=== PATIENT | female | born 1950 | race Caucasian/White ===

== ENCOUNTER 2018-04-13 15:26 | Inpatient (IN) | payer MEDICARE ==
[~2018-04-13] VITALS: Ht 154.9 cm; Wt 53.5 kg
[2018-04-13] MEDS ORDERED: PIPER-TAZ 3.375 GM 50 ML IV SCH (16:00)
[2018-04-13 16:16] LABS: BASOPHILS # (AUTO) 0.1 (0.0-0.1); BASOPHILS % 0.3 % (0.0-1.0); EOSINOPHILS # (AUTO) 0.1 (0.0-0.4); EOSINOPHILS % 0.4 % (0.0-6.0); HEMATOCRIT 32.7 % (34.2-44.1); HEMOGLOBIN 10.9 g/dL (12.0-16.0); LYMPHOCYTES # (AUTO) 4.3 (1.0-3.2); LYMPHOCYTES % 18.5 % (18.0-39.1); MEAN CORPUSCULAR HEMOGLOBIN 29.3 pg (28-32); MEAN CORPUSCULAR HGB CONC 33.3 g/dL (31-35); MEAN CORPUSCULAR VOLUME 87.9 fL (81-99); MONOCYTES # (AUTO) 1.1 (0.2-0.8); MONOCYTES % 4.9 % (4.4-11.3); NEUTROPHILS # (AUTO) 17.5 (2.1-6.9); NEUTROPHILS % 75.3 % (38.7-80.0); PLATELET COUNT 552 x10e3/uL (140-360); RED BLOOD COUNT 3.72 x10e6/uL (3.6-5.1); RED CELL DISTRIBUTION WIDTH 12.8 % (11.7-14.4)
[2018-04-13 16:22] LABS: INR 1.08
[2018-04-13 16:23] LABS: PARTIAL THROMBOPLASTIN TIME 26.4 seconds (23.8-35.5)
[2018-04-13 16:29] LABS: ALBUMIN 2.5 g/dL (3.5-5.0); ALBUMIN/GLOBULIN RATIO 0.5 (0.8-2.0); ANION GAP 20.9 mmol/L (8-16); CALCIUM 9.1 mg/dL (8.4-10.2); CREATININE, SERUM 1.73 mg/dL (0.57-1.11)
[2018-04-13 16:35] LABS: CREATINE KINASE MB 18.7 ng/mL (0-5.0)
[2018-04-13 16:37] LABS: POTASSIUM 2.9 mmol/L (3.5-5.1)
[2018-04-13] MEDS ORDERED: POTASSIUM CHLORIDE 20MEQ/100ML 100 ML IV ONE (16:45)
[2018-04-13] MEDS ORDERED: ZIPRASIDONE 20 MG VIAL IM NR (17:00)
[2018-04-13] MEDS ORDERED: POTASSIUM CHLORIDE 20 MEQ TAB CR PO NR (17:00)
[2018-04-13] MEDS ORDERED: NICOTINE 7 MG PATCH ONE (17:09)
[2018-04-13] MEDS ORDERED: NICOTINE 21 MG/EA PATCH ONE (17:09)
[2018-04-13] MEDS: NICOTINE 21 MG/EA PATCH TOP SCH (17:13)
[2018-04-13] MEDS ORDERED: ZIPRASIDONE 20 MG VIAL IM PRN ×2 (17:15→21:00)
[2018-04-13 17:18] LABS: AMPHETAMINES SCREEN,URINE NEGATIVE (NEGATIVE); BENZODIAZEPINES SCREEN,URINE NEGATIVE (NEGATIVE); PHENCYCLIDINE SCREEN,URINE NEGATIVE (NEGATIVE)
--- NOTE | 2018-04-13 17:28 | Diagnostic Imaging Report ---
RIGHT TIBIA AND FIBULA X-RAY - 4 VIEWS HISTORY: ^looking for gas line from [place] ^[id number] ^1600 COMPARISON: None available. FINDINGS: Bones: No acute displaced fracture. Osseous alignment is within normal limits. Joints: The joint spaces are well-maintained. Soft tissues: Extensive soft tissue that within the anterior and posterior aspect of the right lower extremity. Diffuse soft tissue swelling. IMPRESSION: Soft tissue swelling and multiple air foci throughout the right lower extremity without cortical erosion. Signed by: Dr. Melvi Marx M.D. on 04/13/2018 5:25 PM
--- NOTE | 2018-04-13 17:29 | Diagnostic Imaging Report ---
LEFT TIBIA AND FIBULA X-RAY - 4 VIEWS HISTORY: ^looking for gas line from [place] ^[id number] ^1600 COMPARISON: None available. FINDINGS: Bones: No acute displaced fracture. Status post fixation of the distal fibula with plates and screws. The hardware appears intact. Osseous alignment is within normal limits. Joints: The joint spaces are well-maintained. Soft tissues: The soft tissues appear unremarkable. IMPRESSION: No visualize soft tissue swelling or air foci. Signed by: Dr. Melvi Marx M.D. on 04/13/2018 5:26 PM
[2018-04-13] MEDS ORDERED: HALOPERIDOL LACTATE 5 MG/ML VIAL ONE (17:46)
[2018-04-13] MEDS ORDERED: HALOPERIDOL LACTATE 5 MG/ML VIAL IM ONE (18:00)
[2018-04-13] MEDS ORDERED: HALOPERIDOL LACTATE 5 MG/ML VIAL IM NR (18:00)
--- NOTE | 2018-04-13 18:55 | Diagnostic Imaging Report ---
EXAM: CT Abdomen and Pelvis WITHOUT contrast INDICATION: ^prolaped uterus, cellulitis, concern of abscess COMPARISON: None. TECHNIQUE: Abdomen and pelvis were scanned utilizing a multidetector helical scanner from the lung base to the pubic symphysis without administration of IV contrast. Absence of intravenous contrast decreases sensitivity for detection of focal lesions and vascular pathology. Coronal and sagittal reformations were obtained. Routine protocol was performed. IV CONTRAST: None. ORAL CONTRAST: Water RADIATION DOSE: Total DLP: 182.3 mGy*cm Estimated effective dose: (DLP x 0.015 x size factor) mSv COMPLICATIONS: None FINDINGS: LINES and TUBES: Stover catheter within the urinary bladder. LOWER THORAX: Unremarkable HEPATOBILIARY: No focal hepatic lesions. No biliary ductal dilation. GALLBLADDER: No radio-opaque stones or sludge. No wall thickening. SPLEEN: No splenomegaly. PANCREAS: No focal masses or ductal dilatation. ADRENALS: No adrenal nodules KIDNEYS/URETERS: Mild hydronephrosis without calcified stones. No cystic or solid mass lesions. No stones. GI TRACT: No abnormal distention, wall thickening, or evidence of bowel obstruction. Appendix is not visualized. PELVIC ORGANS/BLADDER: Prolapse of the uterus within the vagina. No surrounding fluid collections or abscess. LYMPH NODES: No lymphadenopathy. VESSELS: Marked tortuosity of the abdominal aorta without aneurysm. PERITONEUM / RETROPERITONEUM: No free air or fluid. BONES: Multilevel degenerative changes throughout the lumbar spine, worse at L1-L2 1 L5-S1. Scoliosis. SOFT TISSUES: Partially visualized bilateral breast implants. IMPRESSION: 1. Uterine prolapse. 2. No fluid collections or abscess within the pelvis or perineum region. Signed by: Dr. Melvi Marx M.D. on 04/13/2018 6:52 PM
--- NOTE | 2018-04-13 18:56 | Diagnostic Imaging Report ---
EXAMINATION: CHEST SINGLE (PORTABLE) INDICATION: ^pre op COMPARISON: CT abdomen and pelvis 04/13/2018 FINDINGS: AP view TUBES and LINES: None. LUNGS: Lungs are well inflated. Lungs are clear. There is no evidence of pneumonia or pulmonary edema. PLEURA: No pleural effusion or pneumothorax. HEART AND MEDIASTINUM: The cardiomediastinal silhouette is unremarkable.. BONES AND SOFT TISSUES: No acute osseous lesion. Bilateral breast implants. UPPER ABDOMEN: No free air under the diaphragm. IMPRESSION: No acute thoracic abnormality. Signed by: Dr. Melvi Marx M.D. on 04/13/2018 6:52 PM
[2018-04-13] MEDS: VANCOMYCIN 1GM/NS 250 ML 250 ML IV SCH (19:30)
[2018-04-13] MEDS ORDERED: SODIUM CHLORIDE 0.9% 1000ML 1,000 ML IV ONE (20:00)
[2018-04-13] MEDS ORDERED: KCL 20MEQ/.9 SOD CHL 1,000 ML IV ONE (20:00)
[2018-04-13] MEDS ORDERED: DEXTROSE 50% SYRINGE 50 ML IV PRN (20:15)
[2018-04-13] MEDS ORDERED: ONDANSETRON HCL INJ 2 MG/ML VIAL IV PRN (20:15)
[2018-04-13] MEDS ORDERED: MORPHINE SULFATE 2 MG/ML SYR IV PRN (20:15)
--- OUTSIDE RECORDS SUMMARY | 2018-04-13 20:19 | XMS REPORT ---
Author Author [facility] Address Unknown Phone Unavailable Care Team Providers Care Foot Roentgenologist Name Role Phone Karla QUACH Unavailable Unavailable Problems This patient has no known problems. Allergies, Adverse Reactions, Alerts This patient has no known allergies or adverse reactions. Medications This patient has no known medications. Results Test Description Test Time Test Comments Text Results Atomic Results Result Comments CHEST SINGLE (PORTABLE) 2018-04-13 18:52:00 [place] [address] Patient Name: SUSY ARMSTRONG MR #: [id number] : 1950 Age/Sex: 67/F Req #: [id number] Adm Physician: Ordered by: ABISAI QUACH MD Report #: [id number] Location: ER Room/Bed: Procedure: [id number] DX/CHEST SINGLE (PORTABLE) Exam Date: Exam Time: REPORT STATUS: Signed EXAMINATION: CHEST SINGLE (PORTABLE) INDICATION: pre op COMPARISON: CT abdomen and pelvis 04/13/2018 FINDINGS: AP view TUBES and LINES: None. LUNGS: Lungs are well inflated. Lungs are clear. There is no evidence of pneumonia or pulmonary edema. PLEURA: No pleural effusion or pneumothorax. HEART AND MEDIASTINUM: The cardiomediastinal silhouette is unremarkable.. BONES AND SOFT TISSUES: No acute osseous lesion. Bilateral breast implants. UPPER ABDOMEN: No free air under the diaphragm. IMPRESSION: No acute thoracic abnormality. Signed by: Dr. Polly Saldana M.D. on 04/13/2018 6:52 PM Dictated By: POLLY SALDANA MD 51 Transcribed By: ADRIAN on 04/13/181851 COPY TO: ABISAI QUACH MD CT ABDOMEN/PELVIS WO 2018-04-13 18:48:00 [place] [address] Patient Name: SUSY ARMSTRONG MR #: [id number] : 1950 Age/Sex: 67/F Req #: [id number] Adm Physician: Ordered by: ELIDA MARIE NP Report #: [id number] Location: ER Room/Bed: Procedure: [id number] CT/CT ABDOMEN/PELVIS WO Exam Date: Exam Time: REPORT STATUS: Signed EXAM: CT Abdomen and Pelvis WITHOUT contrast INDICATION: prolaped uterus, cellulitis, concern of abscess COMPARISON: None. TECHNIQUE: Abdomen and pelvis were scanned utilizing a multidetector helical scanner from the lung base to the pubic symphysis without administration of IV contrast. Absence of intravenous contrast decreases sensitivity for detection of focal lesions and vascular pathology. Coronal and sagittal reformations were obtained. Routine protocol was performed. IV CONTRAST: None. ORAL CONTRAST: Water RADIATION DOSE: Total DLP: 182.3 mGy*cm Estimated effective dose: (DLP x 0.015 x size factor) mSv COMPLICATIONS: None FINDINGS: LINES and TUBES: Stover catheter within the urinary bladder. LOWER THORAX: Unremarkable HEPATOBILIARY: No focal hepatic lesions. No biliary ductal dilation. GALLBLADDER: No radio-opaque stones or sludge. No wall thickening. SPLEEN: No splenomegaly. PANCREAS: No focal masses or ductal dilatation. ADRENALS: No adrenal nodules KIDNEYS/URETERS: Mild hydronephrosis without calcified stones. No cystic or solid mass lesions. No stones. GI TRACT: No abnormal distention, wall thickening, or evidence of bowel obstruction. Appendix is not visualized. PELVIC ORGANS/BLADDER: Prolapse of the uterus within the vagina. No surrounding fluid collections or abscess. LYMPH NODES: No lymphadenopathy. VESSELS: Marked tortuosity of the abdominal aorta without aneurysm. PERITONEUM / RETROPERITONEUM: No free air or fluid. BONES: Multilevel degenerative changes throughout the lumbar spine, worse at L1-L2 1 L5-S1. Scoliosis. SOFT TISSUES: Partially visualized bilateral breast implants. IMPRESSION: 1. Uterine prolapse. 2. No fluid collections or abscess within the pelvis or perineum region. Signed by: Dr. Polly Saldana M.D. on 04/13/2018 6:52 PM Dictated By: POLLY SALDANA MD 51 Transcribed By: ADRIAN on 04/13/181851 COPY TO: ELIDA MARIE NP LOWER LEG LEFT 2018-04-13 17:25:00 [place] [address] Patient Name: SUSY ARMSTRONG MR #: [id number] : 1950 Age/Sex: 67/F Req #: [id number] Adm Physician: Ordered by: ABISAI QUACH MD Report #: [id number] Location: ER Room/Bed: Procedure: [id number] DX/LOWER LEG LEFT Exam Date: 04/13/18 Exam Time: 1600 REPORT STATUS: Signed LEFT TIBIA AND FIBULA X-RAY - 4 VIEWS HISTORY: looking for gas line from [facility] [id number] COMPARISON: None available. FINDINGS: Bones: No acute displaced fracture. Status post fixation of the distal fibula with plates and screws. The hardware appears intact. Osseous alignment is within normal limits. Joints: The joint spaces are well-maintained. Soft tissues: The soft tissues appear unremarkable. IMPRESSION: No visualize soft tissue swelling or air foci. Signed by: Dr. Polly Saldana M.D. on 04/13/2018 5:26 PM Dictated By: POLLY SALDANA MD 25 Transcribed By: ADRIAN on 04/13/181725 COPY TO: ABISAI QUACH MD LOWER LEG RIGHT 2018-04-13 17:24:00 [place] [address] Patient Name: SUSY ARMSTRONG MR #: [id number] : 1950 Age/Sex: 67/F Req #: [id number] Adm Physician: Ordered by: ABISAI QUACH MD Report #: [id number] Location: ER Room/Bed: Procedure: [id number] DX/LOWER LEG RIGHT Exam Date: 04/13/18 Exam Time: 1600 REPORT STATUS: Signed RIGHT TIBIA AND FIBULA X-RAY - 4 VIEWS HISTORY: looking for gas line from [facility] [id number] COMPARISON: None available. FINDINGS: Bones: No acute displaced fracture. Osseous alignment is within normal limits. Joints: The joint spaces are well-maintained. Soft tissues: Extensive soft tissue that within the anterior and posterior aspect of the right lower extremity. Diffuse soft tissue swelling. IMPRESSION: Soft tissue swelling and multiple air foci throughout the right lower extremity without cortical erosion. Signed by: Dr. Polly Saldana M.D. on 04/13/2018 5:25 PM Dictated By: POLLY SALDANA MD 24 Transcribed By: ADRIAN on 04/13/181724 COPY TO: ABISAI QUACH MD
[2018-04-13 21:00] VITALS: BP 129/72
[2018-04-13] MEDS: INSULIN REGULAR, HUMAN 100 UNIT/1 ML 3ML VIAL SQ SCH (21:00)
[2018-04-13 22:00] VITALS: BP 129/72
[2018-04-13] MEDS: SODIUM CHLORIDE 0.9% 1000ML 1,000 ML IV SCH (22:44)
[2018-04-13 23:01] VITALS: BP 129/72
[2018-04-14] VITALS (8 sets, daily range): BP systolic 75–120; BP diastolic 46–64
[2018-04-14] MEDS: SODIUM CHLORIDE 0.9% 1000ML 1,000 ML IV SCH ×4 (03:17→17:06)
[2018-04-14] MEDS: PIPERACILLIN/TAZO 2.25 GM 50 ML IV SCH ×4 (03:17→17:00)
[2018-04-14] MEDS ORDERED: SODIUM CHLORIDE 0.9% 50ML 50 ML ONE ×2 (03:18→06:08)
[2018-04-14] MEDS: ACETAMINOPHEN 1000 MG/100 ML IV SCH ×3 (05:40→17:00)
[2018-04-14 06:57] LABS: BASOPHILS % 0.2 % (0.0-1.0); EOSINOPHILS % 0.1 % (0.0-6.0); HEMATOCRIT 23.8 % (34.2-44.1); LYMPHOCYTES # (AUTO) 2.4 (1.0-3.2); LYMPHOCYTES % 13.1 % (18.0-39.1); MEAN CORPUSCULAR HEMOGLOBIN 29.9 pg (28-32); MEAN CORPUSCULAR HGB CONC 33.6 g/dL (31-35); MEAN CORPUSCULAR VOLUME 88.8 fL (81-99); MONOCYTES # (AUTO) 1.1 (0.2-0.8); MONOCYTES % 5.9 % (4.4-11.3); NEUTROPHILS # (AUTO) 14.6 (2.1-6.9); NEUTROPHILS % 79.9 % (38.7-80.0); PLATELET COUNT 412 x10e3/uL (140-360); RED BLOOD COUNT 2.68 x10e6/uL (3.6-5.1); RED CELL DISTRIBUTION WIDTH 13.2 % (11.7-14.4)
[2018-04-14 07:24] LABS: CREATINE KINASE MB 4.2 ng/mL (0-5.0)
[2018-04-14] MEDS: INSULIN REGULAR, HUMAN 100 UNIT/1 ML 3ML VIAL SQ SCH ×4 (07:30→21:00)
[2018-04-14 07:38] LABS: CALCIUM 7.6 mg/dL (8.4-10.2); CREATININE, SERUM 1.07 mg/dL (0.57-1.11); MAGNESIUM 1.6 MG/DL (1.3-2.1); PHOSPHORUS 3.1 MG/DL (2.3-4.7)
[2018-04-14 08:19] LABS: CLARITY,URINE CLOUDY (CLEAR); COLOR,URINE AMBER (YELLOW); LEUKOCYTE ESTERASE ,URINE 2+ (NEGATIVE); NITRITE,URINE NEGATIVE (NEGATIVE)
[2018-04-14 08:20] LABS: BILIRUBIN,URINE NEGATIVE (NEGATIVE); KETONES,URINE NEGATIVE (NEGATIVE); PROTEIN,URINE DIPSTICK 2+ (NEGATIVE); URINE UROBILINOGEN 0.2 mg/dL (0.2 - 1)
[2018-04-14] MEDS ORDERED: POTASSIUM CHLORIDE 20 MEQ TAB CR PO STA (10:12)
[2018-04-14] MEDS ORDERED: SODIUM CHLORIDE 0.9% 250ML 250 ML IV ONE (10:45)
[2018-04-14] MEDS ORDERED: SODIUM CHLORIDE 0.9% 1000ML 1,000 ML IV ONE (14:30)
[2018-04-14] MEDS ORDERED: ZIPRASIDONE 20 MG VIAL IM PRN (14:45)
[2018-04-14] MEDS: MIDODRINE HCL 5 MG TABLET PO SCH (15:24)
[2018-04-14 15:51] LABS: HIV 1&2 AB SCREEN NON-REACTIVE (NONREACTIVE)
--- NOTE | 2018-04-14 15:56 | Consultation ---
DATE OF CONSULTATION: April 14, 2018 INFECTIOUS DISEASE CONSULTATION REASON FOR CONSULTATION: Leg cellulitis. HISTORY OF PRESENT ILLNESS: This patient, who is homeless, comes into the hospital with altered mental status. The patient does not really provide any meaningful information. History was taken mainly from the chart. Comes in with altered mental status. The patient was also found to have a wound on her leg. The patient apparently had chronic wound. There are maggots coming from her leg. The patient is currently lying in bed comfortably, sleeping. MEDICATIONS: She is on Zosyn, insulin, vancomycin. PHYSICAL EXAMINATION GENERAL: She is alert but confused. Does not seem to be in acute distress. VITALS: Stable currently. HEENT: She is not icteric. NECK: Supple. CHEST: Clear. COR: S1 and S2, no murmur. ABDOMEN: Soft. She had CT of the abdomen and pelvis that showed no acute finding. Chest x-ray showed no acute finding. IMPRESSION: Chronic wound on the leg with infection. IV vancomycin. IV Zosyn. Will check CBC. Will check chem panel. Surgical debridement. Obtain HIV. Obtain hepatitis. Will follow. Job#: [id number]
[2018-04-14] MEDS ORDERED: MIDODRINE 2.5 MG TAB PO SCH (16:00)
--- NOTE | 2018-04-14 16:02 | History and Physical ---
CHIEF COMPLAINT: Altered mental status. HPI: This is a 67-year-old female with no known past medical history. Of note, she was found at a local [employer] after found down and unresponsive for a significant period of time. Innocent bystanders called EMS and was brought into [facility] for evaluation. According to the ER note, the patient had a significant wound in the right lower extremity. There were maggots and they were flying in the ER from the wound. There was also some concerns of underlying uterine prolapse as well. The patient was interviewed at bedside. She reports that she lives at an apartment in which she recently just moved from one facility to the next due to some concerns of asbestosis. The patient was seen and evaluated at bedside. She is very hypotensive now. She is alert, awake and talking . She denies any chest pain, palpitations, nausea, or vomiting. Denies any fevers or chills. The patient was seen and evaluated at the bedside, and . No other issues. The patient denies any family here in [place] . REVIEW OF SYSTEMS: Pertinent positive is encephalopathy, right lower extremity cellulitis. Pertinent negative is denies any chest pain, palpitations, nausea, vomiting, diarrhea, dysuria, hematuria, frequency, urgency, , headaches, . The rest of the 14-point review of systems have been reviewed with the patient and are negative. ALLERGIES: NO KNOWN DRUG ALLERGIES. HOME MEDICATIONS: The patient is not on any home medications. PAST MEDICAL HISTORY: She reports none. SURGICAL HISTORY: None. FAMILY HISTORY: Hypertension. SOCIAL HISTORY: Apparently, lives at home on her own. No drug use. Does not smoke. PHYSICAL EXAMINATION VITAL SIGNS: Temperature is 98.2, T-max is 102.9, pulse 80, respiratory rate 18, blood pressure 111/87 and , pulse ox 94% on room air. GENERAL: Not in acute distress. Alert and oriented times 3. Cooperative on examination. The patient looked very disheveled, but alert and oriented times 3. HEENT: Head is normocephalic and atraumatic. Eyes: Pupils equal, round and reactive to light bilaterally. Extraocular movements intact bilaterally. NECK: Supple. Good range of motion. Throat with no evidence of any erythema or exudates in the posterior pharynx. Has poor dentition. PULMONARY: Clear to auscultation bilaterally. No wheezing. No rales. No rhonchi. No crackles appreciated. CARDIOVASCULAR: Positive S1 and S2. No murmurs, rubs or gallops appreciated. ABDOMEN: Soft, nondistended and nontender to palpation. Bowel sounds present. MUSCULOSKELETAL: Strength is 5/5 throughout. No evidence of any muscle deficit on examination. No weakness appreciated. NEUROLOGICAL: Cranial nerves II-XII are grossly intact. No evidence of any neurological deficits on exam. SKIN: Intact. Warm to touch. Good cap refill. PSYCHIATRIC: Normal affect and mood. EXTREMITIES: The patient has a right lower extremity cellulitis with ulceration. Performed debridement by general surgery with maggots around the incision site. IMPRESSION 1. Sepsis with underlying fever, likely multifactorial from underlying cellulitis. 2. Metabolic encephalopathy. 3. Rhabdomyolysis. 4. Uterine prolapse. 5. Anemia. 6. Hypokalemia. 7. Case management. 8. Prophylaxis. 9. Physical therapy and occupational therapy. PLAN: At this time, in terms of her encephalopathy, I feel she is more alert now with workup needed. In relation to her sepsis, she is on broad-spectrum IV antibiotics. This is all likely due to her underlying cellulitis in the right lower extremity. The patient is currently on vancomycin and Zosyn. Will monitor blood cultures. In relation to her rhabdomyolysis, we are going to continue with IV fluids. Repeat CK in the morning. Put her on NS at 100 mL as the CK is only greater than 600, and that is significant compared to admission. In relation to her uterine prolapse, FORMS BUILDER has been consulted to come by and evaluate the patient. Her anemia situation, the patient is receiving blood transfusion. Will get a.m. labs. Replace potassium. Case biosolids management technician for placement. Put her on low-dose Lovenox for DVT prophylaxis, as well as Pepcid. PT/OT eval and treat. The patient will need to continue to be followed. I have consulted several consultants including ID, general surgery at this time. Job#: [id number] MD
[2018-04-14] MEDS: ENOXAPARIN SOD INJ 40 MG/0.4 ML SYR SC SCH (17:00)
[2018-04-14] MEDS ORDERED: POTASSIUM CHLORIDE 20 MEQ TAB CR PO ONE (17:00)
[2018-04-14] MEDS: VANCOMYCIN 1GM/NS 250 ML 250 ML IV SCH (17:43)
[2018-04-14] MEDS ORDERED: SODIUM CHLORIDE 0.9% 250ML 250 ML ONE (19:45)
[2018-04-14 21:15] LABS: WBC,URINE (MAN) 21-50 /HPF (0-5)
[2018-04-14 21:16] LABS: BACTERIA,URINE MANY /HPF; EPITHELIAL CELLS,URINE FEW /LPF; RBC,URINE 0-5 /HPF (0-5)
[2018-04-14 21:17] LABS: AMORPHOUS SEDIMENT,URINE MANY (FEW); TRIPLE PHOSPHATE CRYSTAL,UR MODERATE (FEW)
[2018-04-15] VITALS (12 sets, daily range): BP systolic 83–99; BP diastolic 45–76
[2018-04-15] MEDS: ACETAMINOPHEN 1000 MG/100 ML IV SCH (00:47)
[2018-04-15] MEDS: PIPERACILLIN/TAZO 2.25 GM 50 ML IV SCH ×4 (00:47→17:29)
[2018-04-15 05:08] LABS: BASOPHILS % 0.3 % (0.0-1.0); EOSINOPHILS # (AUTO) 0.3 (0.0-0.4); EOSINOPHILS % 1.8 % (0.0-6.0); HEMOGLOBIN 9.7 g/dL (12.0-16.0); LYMPHOCYTES # (AUTO) 2.9 (1.0-3.2); LYMPHOCYTES % 18.1 % (18.0-39.1); MEAN CORPUSCULAR HEMOGLOBIN 29.7 pg (28-32); MEAN CORPUSCULAR HGB CONC 33.4 g/dL (31-35); MEAN CORPUSCULAR VOLUME 88.7 fL (81-99); MONOCYTES # (AUTO) 0.5 (0.2-0.8); MONOCYTES % 3.3 % (4.4-11.3); NEUTROPHILS # (AUTO) 12.1 (2.1-6.9); NEUTROPHILS % 76.1 % (38.7-80.0); PLATELET COUNT 418 x10e3/uL (140-360); RED BLOOD COUNT 3.27 x10e6/uL (3.6-5.1); RED CELL DISTRIBUTION WIDTH 13.5 % (11.7-14.4)
[2018-04-15 05:24] LABS: ALANINE AMINOTRANSFERASE 15 IU/L (0-55); ALBUMIN 1.3 g/dL (3.5-5.0); ALBUMIN/GLOBULIN RATIO 0.4 (0.8-2.0); ALKALINE PHOSPHATASE 52 IU/L (40-150); ANION GAP 9.6 mmol/L (8-16); BLOOD UREA NITROGEN 18 mg/dL (7-26); BUN/CREATININE RATIO 21 (6-25); CARBON DIOXIDE 19 mmol/L (22-29); CHLORIDE 112 mmol/L (98-107); CREATININE, SERUM 0.86 mg/dL (0.57-1.11); EST GLOMERULAR FILTRATION RATE > 60 ML/MIN (60-); GLUCOSE 91 mg/dL (74-118); POTASSIUM 3.6 mmol/L (3.5-5.1); SODIUM 137 mmol/L (136-145)
[2018-04-15] MEDS: SODIUM CHLORIDE 0.9% 1000ML 1,000 ML IV SCH ×2 (05:26→13:06)
[2018-04-15 05:46] LABS: CREATINE KINASE 298 IU/L (29-168)
[2018-04-15] MEDS: INSULIN REGULAR, HUMAN 100 UNIT/1 ML 3ML VIAL SQ SCH ×4 (07:30→21:12)
[2018-04-15] MEDS: MIDODRINE HCL 5 MG TABLET PO SCH ×3 (08:00→16:50)
[2018-04-15] MEDS: MUPIROCIN 2% OINT 22 GM TUBE TOP SCH (09:00)
[2018-04-15] MEDS ORDERED: HYDROGEN PEROXIDE 120 ML BTL ONE (09:30)
--- NOTE | 2018-04-15 10:32 | Progress Note ---
DATE: April 15, 2018 SUBJECTIVE: Patient is very combative this morning. Her blood pressure is much better slightly greater than 100. She did remove her dressing and several maggots came out of the actual dressing changes. She is scheduled for surgery today for debridement of the right lower extremity. PHYSICAL EXAMINATION: VITAL SIGNS: Temperature is 98.2, pulse 73, respiratory rate is 18, blood pressure last one was 99/56, pulse ox 93% on room air. GENERAL: Not in acute distress, alert and oriented x2, cooperative on exam. HEENT: Head: Normocephalic, atraumatic. Eyes: Pupils equal, round, and reactive to light bilaterally. Extraocular movements intact bilaterally. Throat: No evidence of any erythema or exudates in the posterior pharynx. Has poor dentition. NECK: Supple with good range of motion. PULMONARY: Clear to auscultation bilaterally. No wheezing, no rales, no rhonchi, no crackles appreciated. CARDIOVASCULAR: Positive S1 and S2. No murmurs, rubs, or gallops appreciated. ABDOMEN: Soft, nondistended, nontender to palpation. Bowel sounds present. MUSCULOSKELETAL: Strength is 5/5 throughout. No evidence of any musculoskeletal deficit on examination. No weakness appreciated. NEUROLOGICAL: Cranial nerves II through XII are grossly intact. SKIN: Intact. Warm to touch. Good cap refill. PSYCHIATRIC: At baseline. EXTREMITIES: Has right lower extremity cellulitis with wrapping. LAB FINDINGS: Showed white count is 15.9, hemoglobin is 9.7, hematocrit is 29, platelets of 418,000. Chemistry: Sodium 137, potassium is 3.6, chloride 112, bicarb 19, anion gap of 9.6, BUN is 18, creatinine is 0.83, glucose 91, calcium is 8. AST is 17, ALT 15, total bilirubin is 0.7, alk phos 52. MICROBIOLOGY: Blood cultures, no growth to date. IMPRESSION: 1. Sepsis with underlying fever, likely multifactorial from underlying cellulitis. 2. Metabolic encephalopathy. 3. Rhabdomyolysis. 4. Uterine prolapse. 5. Anemia. 6. Hypokalemia. 7. Prophylaxis. 8. Physical therapy, occupational therapy evaluation. PLAN: At this time, she is scheduled to go to surgery later today for debridement of the right lower extremity. She is on IV antibiotics and ID is following. Blood cultures were negative. CK is now much improved and normal. Continue with IV fluids for now. OB-EQUIPMENT TESTER was consulted to evaluate for uterine prolapse. Her labs are much improved. Will order a.m. labs. She is on Lovenox for DVT prophylaxis. Discussed with case management and it seems that the patient has an apartment outside from here. We are going to consult psychiatry for underlying psychosis. Job#: [id number]
[2018-04-15] MEDS ORDERED: ONDANSETRON HCL INJ 2 MG/ML VIAL IV PRN (11:30)
[2018-04-15] MEDS: LACTATED RINGER'S 1,000 ML INJ SCH ×2 (11:30→20:55)
[2018-04-15] MEDS: FENTANYL CITRATE/PF 100MCG/2 ML INJ ONE ×4 (12:19→19:16)
--- NOTE | 2018-04-15 12:23 | Operative Report ---
DATE OF PROCEDURE: April 15, 2018 PREOPERATIVE DIAGNOSES 1. Necrotizing infection of the right lower extremity. 2. Multiple comorbid conditions including encephalopathy, history of alcohol abuse, anemia, uterine prolapse. INDICATIONS: She was admitted through the emergency room apparently after she was found to be unconscious outside a local restaurant. The patient then was brought to the emergency room where she was admitted. INTRAOPERATIVE FINDINGS: The patient had a necrotizing infection that involved the anterior aspect of the right leg almost in its entirety with exposure of the tibialis anterior muscle. The actual tibia was not exposed. There was complete necrosis all the way down to the fascia. There were maggots throughout the wound on the day of admission, and those had to be scooped out. There were several few remaining maggots on the day of surgery. The patient had an ulceration, also, in the lateral and posterior aspect of the right leg that measured about 8 cm with some degree of granulation tissue. There was also a smaller, more superficial ulcer located superior to the medial malleolus. All the necrotic tissue was debrided, the remaining maggots were removed, and the wound copiously irrigated. Preoperatively, I obtained consent for debridement of necrotizing infection of the right leg. I discussed with the patient the possibility of her needing an amputation, and she refused on different occasions the day prior to surgery. She clearly understood that if the infection was not controlled with the debridement that an amputation would be required, and she refused. She stated that she would rather than to have an amputation and adamantly refused the amputation. The day of surgery, the patient was more confused and uncooperative. She was refusing surgery. Anesthesia service, Dr. Randall, and I agreed that debridement was medically necessary. Otherwise, this patient would succumb to the sepsis. Then we proceeded with the surgery that was life-saving and medically necessary. DESCRIPTION OF PROCEDURE: With the patient lying on the operative table in the supine position, after administration of general anesthesia, she was prepped and draped for debridement of necrotic tissue of the anterior leg. All the skin that was and liquified was excised down to viable tissue. The entire skin and subcutaneous tissue of mainly the anterior aspect of the right leg was removed, leaving the anterior compartment exposed. The fascia was not involved with the process. There was some necrotic tissue covering it. The bone was also not totally exposed. There were several remaining maggots removed. Then we copiously irrigated the wound. Bleeding points were cauterized. The posterolateral ulcer had granulation tissue, and this needed debridement, the same as the smaller 2 cm ulcer anterior to the medial malleolus. The ulcers were covered with Xeroform. Then the large defect in the pretibial area was packed with Kerlix containing saline solution. Sterile dressing was applied. The patient tolerated the procedure well and was taken to the recovery room in stable condition. Job#: [id number]
[2018-04-15] MEDS: THIAMINE HCL INJ 100 MG/ML 2ML VIAL IV SCH (12:44)
[2018-04-15] MEDS: NICOTINE 21 MG/EA PATCH TOP SCH ×2 (12:50→13:37)
[2018-04-15] MEDS: QUETIAPINE FUMARATE 25 MG TAB PO PRN ×2 (14:13→21:04)
[2018-04-15] MEDS: VANCOMYCIN 1GM/NS 250 ML 250 ML IV SCH (15:56)
[2018-04-15] MEDS: ENOXAPARIN SOD INJ 40 MG/0.4 ML SYR SC SCH (17:29)
[2018-04-15] MEDS ORDERED: KETAMINE HCL INJ 50 MG/ML 10 ML VIAL ONE (18:50)
[2018-04-15] MEDS ORDERED: MIDAZOLAM HCL 2 MG/2 ML VIAL ONE (18:50)
[2018-04-15] MEDS ORDERED: ONDANSETRON HCL INJ 2 MG/ML VIAL ONE (19:14)
[2018-04-15] MEDS ORDERED: PROPOFOL IV EMULSION 10 MG/ML 20 ML VIAL ONE (19:14)
[2018-04-15] MEDS ORDERED: SEVOFLURANE INHAL SOLN 250 ML PEN BTL ONE (19:14)
[2018-04-15] MEDS ORDERED: LIDOCAINE HCL 2% LOCAL INJ 5 ML SDV VIAL INJ ONE (19:14)
[2018-04-15] MEDS ORDERED: DEXAMETHASONE SOD PHOS INJ 4 MG/ML VIAL ONE (19:14)
[2018-04-15] MEDS: HYDROCODONE/APAP 7.5MG-325MG 1 EA TAB PO PRN (20:59)
[2018-04-16] VITALS (7 sets, daily range): BP systolic 87–115; BP diastolic 49–98
[2018-04-16] MEDS: PIPERACILLIN/TAZO 2.25 GM 50 ML IV SCH ×6 (00:20→23:42)
[2018-04-16 05:31] LABS: BASOPHILS % 0.2 % (0.0-1.0); EOSINOPHILS # (AUTO) 0.4 (0.0-0.4); EOSINOPHILS % 4.2 % (0.0-6.0); HEMATOCRIT 26.6 % (34.2-44.1); HEMOGLOBIN 8.7 g/dL (12.0-16.0); LYMPHOCYTES # (AUTO) 2.6 (1.0-3.2); LYMPHOCYTES % 25.9 % (18.0-39.1); MEAN CORPUSCULAR HEMOGLOBIN 29.5 pg (28-32); MEAN CORPUSCULAR HGB CONC 32.7 g/dL (31-35); MEAN CORPUSCULAR VOLUME 90.2 fL (81-99); MONOCYTES # (AUTO) 0.5 (0.2-0.8); MONOCYTES % 4.6 % (4.4-11.3); NEUTROPHILS # (AUTO) 6.6 (2.1-6.9); NEUTROPHILS % 64.5 % (38.7-80.0); PLATELET COUNT 446 x10e3/uL (140-360); RED BLOOD COUNT 2.95 x10e6/uL (3.6-5.1); RED CELL DISTRIBUTION WIDTH 13.9 % (11.7-14.4)
[2018-04-16 05:55] LABS: ANION GAP 10.2 mmol/L (8-16); BLOOD UREA NITROGEN 14 mg/dL (7-26); BUN/CREATININE RATIO 15 (6-25); CALCIUM 7.8 mg/dL (8.4-10.2); CARBON DIOXIDE 22 mmol/L (22-29); CHLORIDE 108 mmol/L (98-107); CREATININE, SERUM 0.91 mg/dL (0.57-1.11); EST GLOMERULAR FILTRATION RATE > 60 ML/MIN (60-); GLUCOSE 116 mg/dL (74-118); POTASSIUM 3.2 mmol/L (3.5-5.1); SODIUM 137 mmol/L (136-145)
[2018-04-16] MEDS: MORPHINE SULFATE INJ 4 MG/ML INJ IV PRN ×2 (05:59→22:39)
[2018-04-16] MEDS: LACTATED RINGER'S 1,000 ML INJ SCH ×2 (07:30→16:30)
[2018-04-16] MEDS: INSULIN REGULAR, HUMAN 100 UNIT/1 ML 3ML VIAL SQ SCH ×4 (07:30→21:00)
[2018-04-16] MEDS: THIAMINE HCL INJ 100 MG/ML 2ML VIAL IV SCH (08:21)
[2018-04-16] MEDS: MUPIROCIN 2% OINT 22 GM TUBE TOP SCH (09:00)
[2018-04-16] MEDS ORDERED: POTASSIUM CHLORIDE 20 MEQ TAB CR PO ONE (09:40)
[2018-04-16] MEDS: MIDODRINE HCL 5 MG TABLET PO SCH ×3 (09:41→15:47)
--- NOTE | 2018-04-16 10:12 | Progress Note ---
DATE: April 16, 2018 MEDICINE PROGRESS NOTE FOLLOWUP SUBJECTIVE: Patient is alert, awake and oriented. Very combative. I asked her if she has any family so I can help her have some further assistance, but she does not want me to know her family. [facility] evaluated the patient yesterday after multiple calls and recommends uro/gynecology. Patient also had debridement of the right lower extremity yesterday by general surgery. PHYSICAL EXAMINATION VITAL SIGNS: Temperature is 97.8, pulse 90, respiratory rate is 18, blood pressure is 87/56, and pulse ox 97% on room air. GENERAL: Not in acute distress, alert and oriented x2, cooperative on exam. HEENT: Head: Normocephalic, atraumatic. Eyes: Pupils equal, round, and reactive to light bilaterally. Extraocular movements intact bilaterally. Throat: No evidence of any erythema or exudates in the posterior pharynx. Has poor dentition. NECK: Supple with good range of motion. PULMONARY: Clear to auscultation bilaterally. No wheezing, no rales, no rhonchi, no crackles appreciated. CARDIOVASCULAR: Positive S1 and S2. No murmurs, rubs, or gallops appreciated. ABDOMEN: Soft, nondistended, nontender to palpation. Bowel sounds present. MUSCULOSKELETAL: Strength is 5/5 throughout. No evidence of any musculoskeletal deficit on examination. No weakness appreciated. NEUROLOGICAL: Cranial nerves II through XII are grossly intact. SKIN: Intact. Warm to touch. Good cap refill. PSYCHIATRIC: Will report to psychiatry. EXTREMITIES: Has wrapping on the right lower extremity. LAB FINDINGS: Sodium 137, potassium 3.2, chloride 108, bicarb 22, anion gap of 10, BUN is 14, creatinine is , glucose is 116, 6.6, and calcium is 7.8. Total bilirubin is 0.7, AST is 17, and ALT was 15. CT was cancelled. Troponins were negative. Albumin is 1.3. Blood cultures no growth. Wound cultures no growth. IMAGING STUDIES: None. IMPRESSIONS 1. Sepsis with underlying fever, multifactorial from underlying right lower extremity cellulitis, status post incision and drainage and debridement on April 15, 2018, by general surgery. 2. Metabolic encephalopathy, could be from underlying sepsis versus from underlying psychiatric disorder. 3. Rhabdomyolysis. 4. Uterine prolapse. 5. Anemia. 6. Hypokalemia. 7. Prophylaxis. 8. Physical therapy, occupational therapy evaluation. PLAN: Patient had already incision and drainage as well as debridement on April 15, 2018, by general surgery. Wound cultures are pending. Continue with IV antibiotics. All cultures so far have been negative. ID is following. She will continue to be on IV fluids today per MANAGER SOCIAL SERVICES. As noted, the patient will likely need a uro/air conditioning insulation installer as she has a uterine prolapse. So, at this time, I am going to put a case management order for transfer to facility. We advise uro/gynecology physician for evaluation. Continue with Lovenox for DVT prophylaxis. We will discuss with case management about the overall plan of care and this patient. Psychiatry was consulted for underlying psychosis. She does have p.o. Seroquel b.i.d. as well as SHIRA Gordon. Job#: [id number]
[2018-04-16] MEDS: HYDROCODONE/APAP 7.5MG-325MG 1 EA TAB PO PRN (12:58)
[2018-04-16] MEDS: NICOTINE 21 MG/EA PATCH TOP SCH (13:00)
[2018-04-16 13:28] LABS: EOSINOPHILS % (MANUAL) 3 % (0-7); LYMPHOCYTES % (MANUAL) 16 % (19-48); MONOCYTES % (MANUAL) 1 % (3.4-9.0); NEUTROPHILS % (MANUAL) 80 % (40-74)
[2018-04-16 13:29] LABS: ANISOCYTOSIS SLIGHT; RBC MORPHOLOGY COMMENT NORMAL
[2018-04-16 13:31] LABS: HYPOCHROMASIA MODERATE; PLATELET ESTIMATE SLIGHTLY INCREASED; PLATELET MORPHOLOGY COMMENT NORMAL
--- NOTE | 2018-04-16 14:05 | Consultation ---
DATE OF CONSULTATION: PSYCHIATRIC INITIAL CONSULT REASON FOR CONSULTATION: For treatment and evaluation of patient's mood and psychosis. HISTORY OF PRESENTING ILLNESS: Patient is a 67-year-old female who is admitted to [facility] due to altered mental status. Psychiatric consult is called to evaluate patient's mood and psychosis during her inpatient stay. As per the medical record, patient was found unresponsive at [employer] and some bystander called EMS and patient was brought in over here. As per the nursing staff, patient has been confused and refusing care. She is talking to herself. She believed that there are pedophiles who are trying to hurt her. She is not letting the staff contact her family and is not providing any contact information. Upon evaluation today, patient is found to be lying on her bed. She is alert, awake, oriented to situation. She knows that she is in the hospital, and she does not remember the events that led to her current hospitalization. She is only partially cooperative. She appears angry and irritable. She denies feeling depressed, hopeless or helpless. She denies any hallucinations and/or any suicidal ideation. She is refusing to answer any other questions. PAST PSYCHIATRIC HISTORY: Patient reports that she has been treated for depression but did not provide any details. She claimed that she attempted suicide at least once in the past. She denies drinking alcohol and denies abusing any recreational drugs. FAMILY HISTORY: Patient denies any family history of psychiatric illness. SOCIAL HISTORY: Patient claimed that she lives alone. MENTAL STATUS EXAMINATION: Patient is a female who appears her stated age. She is uncooperative and easily agitated. Her mood is angry with a flat affect. She denies any suicidal or homicidal ideation at present. She denies any abnormal perceptions at present. She has some paranoid delusions. Her thought process is mostly goal-directed. Her insight and judgment are impaired. CURRENT LABS: WBC 10.17, hemoglobin 8.7, hematocrit 26.6, platelets 446. Sodium 137, potassium 3.2, chloride 108, carbon dioxide 22, BUN 14, creatinine 0.9. CURRENT MEDICINES 1. PRN Advance. 2. Seroquel 25 mg p.o. b.i.d. p.r.n. for agitation. 3. Geodon 5 mg IM q.6 p.r.n. for agitation. DIAGNOSIS AXIS I: Unspecified psychosis/rule out schizoaffective disorder bipolar type. PLAN OF CARE 1. Order CT scan of her head to rule out any organic cause of this confusion and psychosis. 2. Continue p.r.n. Seroquel. 3. Continue p.r.n. IM Geodon. 4. Add Risperdal 0.5 mg twice a day for psychosis. We will continue to see this patient during her inpatient stay for management of her psychiatric symptoms. Thank you very much for this consult. Job#: [id number] EV
[2018-04-16] MEDS: VANCOMYCIN 1GM/NS 250 ML 250 ML IV SCH (15:48)
[2018-04-16] MEDS: RISPERIDONE 0.5 MG TAB PO SCH (16:01)
[2018-04-16] MEDS: ENOXAPARIN SOD INJ 40 MG/0.4 ML SYR SC SCH (16:27)
--- NOTE | 2018-04-16 16:31 | Diagnostic Imaging Report ---
Exam: Head CT without contrast Indication: Altered mental status, evaluate for mass Comparison studies: None Technique: Axial images were obtained from the skull base to the vertex. Coronal and sagittal images reconstructed from the axial data. Dose modulation, iterative reconstruction, and/or weight based adjustment of the mA/kV was utilized to reduce the radiation dose to as low as reasonably achievable. Intravenous contrast: None Findings: Exam quality: Somewhat limited secondary to motion artifacts. Scalp/skull: No abnormalities. Extra-axial spaces: No masses. No fluid collections. Brain sulci: Mildly prominent. Ventricles: Mild compensatory dilatation. No hydrocephalus. Parenchyma: Nonspecific few, scattered hypodensities in the supratentorial white matter are small vessel ischemic changes. No masses, hemorrhage, acute or chronic cortical vascular insults. Sellar/suprasellar region: No abnormalities. Craniocervical junction: Patent foramen magnum. No Chiari one malformation. Incidental findings: Atherosclerotic calcifications in the carotid siphons . Impression: No acute intracranial abnormalities. Specifically, no evidence of intracranial mass. Mild generalized cerebral volume loss and minimal supratentorial white matter microvascular ischemic changes. A preliminary report was provided by Dr. Costa on 04/16/2018 4:35 PM. I have reviewed the images and agree with the findings in the preliminary report. Signed by: Dr. Mily Ordaz M.D. on 04/16/2018 8:16 PM
[2018-04-16] MEDS: QUETIAPINE FUMARATE 25 MG TAB PO PRN (20:11)
[2018-04-17 05:01] VITALS: BP 91/49
[2018-04-17] MEDS: PIPERACILLIN/TAZO 2.25 GM 50 ML IV SCH (05:03)
[2018-04-17] MEDS: LACTATED RINGER'S 1,000 ML INJ SCH ×2 (05:03→12:17)
[2018-04-17 05:11] LABS: BASOPHILS % 0.2 % (0.0-1.0); EOSINOPHILS # (AUTO) 0.5 (0.0-0.4); EOSINOPHILS % 6.2 % (0.0-6.0); HEMATOCRIT 26.1 % (34.2-44.1); HEMOGLOBIN 8.7 g/dL (12.0-16.0); LYMPHOCYTES # (AUTO) 2.8 (1.0-3.2); LYMPHOCYTES % 34.4 % (18.0-39.1); MEAN CORPUSCULAR HGB CONC 33.3 g/dL (31-35); MONOCYTES # (AUTO) 0.5 (0.2-0.8); MONOCYTES % 6.1 % (4.4-11.3); NEUTROPHILS # (AUTO) 4.4 (2.1-6.9); NEUTROPHILS % 52.6 % (38.7-80.0); PLATELET COUNT 459 x10e3/uL (140-360); RED CELL DISTRIBUTION WIDTH 14.2 % (11.7-14.4)
[2018-04-17 05:36] LABS: ANION GAP 7.6 mmol/L (8-16); BLOOD UREA NITROGEN 10 mg/dL (7-26); BUN/CREATININE RATIO 12 (6-25); CALCIUM 7.8 mg/dL (8.4-10.2); CARBON DIOXIDE 25 mmol/L (22-29); CHLORIDE 105 mmol/L (98-107); CREATININE, SERUM 0.85 mg/dL (0.57-1.11); EST GLOMERULAR FILTRATION RATE > 60 ML/MIN (60-); GLUCOSE 99 mg/dL (74-118); POTASSIUM 3.6 mmol/L (3.5-5.1); SODIUM 134 mmol/L (136-145)
[2018-04-17] MEDS: MORPHINE SULFATE INJ 4 MG/ML INJ IV PRN (05:40)
[2018-04-17 07:21] VITALS: BP 98/57
[2018-04-17 07:28] VITALS: BP 98/57
[2018-04-17] MEDS: INSULIN REGULAR, HUMAN 100 UNIT/1 ML 3ML VIAL SQ SCH ×3 (07:30→15:54)
[2018-04-17] MEDS: MIDODRINE HCL 5 MG TABLET PO SCH (07:41)
[2018-04-17] MEDS: THIAMINE HCL INJ 100 MG/ML 2ML VIAL IV SCH (07:55)
[2018-04-17] MEDS: MUPIROCIN 2% OINT 22 GM TUBE TOP SCH (08:00)
[2018-04-17] MEDS: RISPERIDONE 0.5 MG TAB PO SCH ×2 (08:00→16:30)
[2018-04-17] MEDS: NICOTINE 21 MG/EA PATCH TOP SCH (08:00)
--- NOTE | 2018-04-17 10:57 | Progress Note ---
DATE: April 17, 2018 MEDICINE PROGRESS NOTE SUBJECTIVE: Patient is doing well, awake and alert on examination. She was denied [facility] and [facility] for transfer for uterine prolapse. She otherwise has no complaints in relation to her uterus. She continues to be on IV antibiotics, and general surgery is following accordingly. PHYSICAL EXAMINATION: VITAL SIGNS: Temperature is 98.6, pulse 80, respiratory rate is 18, blood pressure is 98/57, pulse ox is 99% on 2 liters nasal cannula. GENERAL: Not in acute distress, alert and oriented x3, cooperative on examination. HEENT: Head: Normocephalic, atraumatic. Eyes: Pupils equal, round, and reactive to light bilaterally. Extraocular movements intact bilaterally. Throat: No evidence of any erythema or exudates in the posterior pharynx. Has poor dentition. NECK: Supple with good range of motion. PULMONARY: Clear to auscultation bilaterally. No wheezing, no rales, no rhonchi, no crackles appreciated. CARDIOVASCULAR: Positive S1 and S2. No murmurs, rubs, or gallops appreciated. ABDOMEN: Soft, nondistended, nontender to palpation. Bowel sounds present. MUSCULOSKELETAL: Strength is 5/5 throughout. No evidence of any musculoskeletal deficit on examination. No weakness appreciated. NEUROLOGICAL: Cranial nerves II through XII are grossly intact. No evidence of any neurological deficits on exam. SKIN: Intact. Warm to touch. Good cap refill. PSYCHIATRIC: at baseline. EXTREMITIES: No edema. Good range of motion throughout. LAB FINDINGS: Showed white count 8.2, hemoglobin 8.7, hematocrit is 26, platelets of 459,000. Coagulation: PT 15, INR 1, PTT 26.4. Chemistry: Sodium 134, potassium 3.6, chloride 105, bicarb 25, anion gap of 7.6, BUN is 10, creatinine is 0.85. Urinalysis, nothing. Blood cultures were negative. Wound culture is consistent with gram-negative bacilli with Streptococcus uberis. IMAGING STUDIES: CT brain shows no acute intracranial abnormality. IMPRESSION: 1. Sepsis with underlying fever, multifactorial from underlying right lower extremity cellulitis, status post irrigation and debridement on April 15, 2018 by general surgery. 2. Metabolic encephalopathy, could be likely secondary to sepsis as well as bipolar disorder. 3. Bipolar. 4. Rhabdomyolysis. 5. Uterine prolapse. 6. Anemia. 7. Hypokalemia. 8. Prophylaxis. 9. Physical therapy/occupational therapy. PLAN: At this time, she has been denied transfer to [facility] and [facility] for further evaluation by urogynecology. I have discussed this with case management, we are going to continue to follow accordingly. It is currently not causing any issues, so she may end up being eventually discharged to follow up closely with a urogynecologist. Apparently, she has had this problem from a long significant period of time. We are going to continue with IV antibiotics because wound cultures are positive. Will follow ID recommendations. General surgery is doing wet-to-dry dressings and monitoring very closely. Will continue with same plan of care. We can transfer her from [facility] to regular medical floor. Decrease midodrine to 5 mg twice a day. Continue with Lovenox for DVT prophylaxis. Job#: [id number]
[2018-04-17 12:24] VITALS: BP 92/51
[2018-04-17] MEDS ORDERED: KEFLEX500 MG PO (12:53)
[2018-04-17] MEDS ORDERED: CEPHALEXIN 500 MG CAP PO SCH (14:00)
[2018-04-17 15:57] VITALS: BP 86/57
[2018-04-17 16:20] VITALS: BP 97/59
[2018-04-17] MEDS: ENOXAPARIN SOD INJ 40 MG/0.4 ML SYR SC SCH (16:30)
[2018-04-17] MEDS ORDERED: MIDODRINE 2.5 MG TAB PO SCH (17:00)
--- NOTE | 2018-04-18 11:34 | Discharge Summary ---
FINAL DISCHARGE DIAGNOSES 1. Sepsis due to right lower extremity cellulitis requiring debridement on April 15, 2018, by general surgery, requiring irrigation. 2. Metabolic encephalopathy secondary to underlying sepsis, also . 3. Bipolar. 4. Rhabdomyolysis, resolving, . 5. Patient left against medical advice. CONSULTANTS: Psychiatry, infectious disease, general surgery, CUSTOMER MANAGEMENT SPECIALIST. VITAL SIGNS: Temperature is 98.8, pulse 102, respiratory rate 20, blood pressure 97/55, pulse ox 99% on room air. LABS: White count 8.2, hemoglobin 8.7, hematocrit is 26, platelets of 459,000. Coagulation: PT 15, INR 1, PTT 26.4. Chemistry: Sodium 134, potassium 3.6, bicarb 25, anion gap of 7, BUN is 10, creatinine is 0.85. Glucose is 99. Wound culture grew Streptococcus and . Blood cultures were no growth to date. IMAGING STUDIES: Lower extremity x-ray shows soft-tissue swelling and multi foci throughout the right lower extremity without cortical erosion. Chest x-ray was found to be negative. CT of the abdomen and pelvis showed uterine prolapse. No fluid collection or abscess within the pelvis or perineal region. CT brain showed no acute intracranial abnormality. HOSPITAL COURSE: This is a 67-year-old female who has a known history of bipolar, who comes in after being found at a local restaurant with maggots in her right lower extremity and foul odor and disheveled. General surgery was consulted, and the patient underwent a debridement and washout and irrigation of the right lower extremity on April 15, 2018. The patient had maggots in the right lower extremity. The patient was surgery. She was being treated for underlying sepsis due to the right lower extremity cellulitis. ID was consulted. The patient was maintained on IV antibiotics. Wound cultures were positive with results above. Due to the patient's encephalopathy, it was thought that the patient was encephalopathic from sepsis. On further discussion, psychiatry was consulted. It was felt the patient uterine prolapse for which CUSTOMER MANAGEMENT SPECIALIST was consulted. They recommended a . She was found to be anemic as well. Police department cannot detain her and that she has a right to leave. PATRICK CASAS MD Job#: [id number]
== END 2018-04-17 20:06 | disposition left against medical advice (07) | DRG 853 ==
LOC: ER 15:26 → ERHOLD 20:02 → MED/SURG3 21:00 → IMCU 04-14 18:06 → MED/SURG2 04-17 18:06
PROVIDERS: ADMIT Internal Medicine; ATTEND Internal Medicine
PROC: 30233N1 Transfusion of Nonautologous Red Blood Cells into Peripheral Vein, Percutaneous Approach (ICD-10-PCS; 2018-04-14)
PROC: 0HDKXZZ Extraction of Right Lower Leg Skin, External Approach (ICD-10-PCS; 2018-04-15)
PROC: 0HDKXZZ Extraction of Right Lower Leg Skin, External Approach (ICD-10-PCS; 2018-04-15)
PROC: 0JBN0ZZ Excision of Right Lower Leg Subcutaneous Tissue and Fascia, Open Approach (ICD-10-PCS; principal; 2018-04-15 10:30)
DX: A41.9 Sepsis, unspecified organism (principal); G93.41 Metabolic encephalopathy; L03.115 Cellulitis of right lower limb; M62.82 Rhabdomyolysis; E87.1 Hypo-osmolality and hyponatremia; B95.4 Other streptococcus as the cause of diseases classified elsewhere; B96.89 Other specified bacterial agents as the cause of diseases classified elsewhere; F25.0 Schizoaffective disorder, bipolar type; Z59.0 Homelessness; N81.3 Complete uterovaginal prolapse; D64.9 Anemia, unspecified; N18.3 Chronic kidney disease, stage 3 (moderate); E86.0 Dehydration; E87.6 Hypokalemia; B87.0 Cutaneous myiasis
CPT/HCPCS: 36415; 51700; 70450; 71045; 74176; 80048; 80053; 80307; 81001; 82550; 82553; 82948; 83605; 83735; 83880; 84100; 84484; 85025; 85610; 85730; 86592; 86850; 86900; 86920; 87040; 87071; 87075; 87186; 87205; 87390; 87536; 93005; 96361; 96372; 99285; G0433; G0435; J1100; J1630; J1650; J2001; J2250; J2270; J2405; J2543; J3370; J3411; J3480; J3486; J7030; J7050; J7120; P9016

== ENCOUNTER 2018-05-26 15:45 | Emergency (ER) | payer SELFPAY ==
[~2018-05-26] VITALS: Ht 154.9 cm; Wt 53.5 kg
[~2018-05-26 15:45] MED LIST: KEFLEX500 MG PO
[2018-05-26 17:58] LABS: BASOPHILS % 0.6 % (0.0-1.0); EOSINOPHILS # (AUTO) 0.5 (0.0-0.4); EOSINOPHILS % 6.5 % (0.0-6.0); HEMATOCRIT 36.5 % (34.2-44.1); HEMOGLOBIN 11.4 g/dL (12.0-16.0); LYMPHOCYTES # (AUTO) 2.2 (1.0-3.2); LYMPHOCYTES % 30.6 % (18.0-39.1); MEAN CORPUSCULAR HEMOGLOBIN 29.8 pg (28-32); MEAN CORPUSCULAR HGB CONC 31.2 g/dL (31-35); MEAN CORPUSCULAR VOLUME 95.3 fL (81-99); MONOCYTES # (AUTO) 0.6 (0.2-0.8); MONOCYTES % 8.1 % (4.4-11.3); NEUTROPHILS # (AUTO) 3.8 (2.1-6.9); NEUTROPHILS % 53.8 % (38.7-80.0); PLATELET COUNT 462 x10e3/uL (140-360); RED BLOOD COUNT 3.83 x10e6/uL (3.6-5.1); RED CELL DISTRIBUTION WIDTH 15.5 % (11.7-14.4)
[2018-05-26 18:22] LABS: ALANINE AMINOTRANSFERASE 10 IU/L (0-55); ALBUMIN 2.7 g/dL (3.5-5.0); ALBUMIN/GLOBULIN RATIO 0.6 (0.8-2.0); ALKALINE PHOSPHATASE 88 IU/L (40-150); ANION GAP 12.5 mmol/L (8-16); BLOOD UREA NITROGEN 8 mg/dL (7-26); BUN/CREATININE RATIO 9 (6-25); CALCIUM 9.3 mg/dL (8.4-10.2); CARBON DIOXIDE 27 mmol/L (22-29); CHLORIDE 106 mmol/L (98-107); CREATININE, SERUM 0.86 mg/dL (0.57-1.11); EST GLOMERULAR FILTRATION RATE > 60 ML/MIN (60-); GLUCOSE 81 mg/dL (74-118); POTASSIUM 3.5 mmol/L (3.5-5.1); SODIUM 142 mmol/L (136-145)
--- NOTE | 2018-05-26 20:17 | Diagnostic Imaging Report ---
FOOT RIGHT COMPLETE - 3 views HISTORY: Infection. COMPARISON: None available. FINDINGS: Bones: No acute displaced fracture. Osseous alignment is within normal limits. Joints: The joint spaces are well-maintained. Soft tissues: Plantar calcaneal enthesophyte. Mild Achilles enthesopathy. IMPRESSION: No acute osseous abnormality. If concern for osteomyelitis, consider further evaluation with MRI of foot without and with contrast. Signed by: Dr. Kareem Woodward M.D. on 05/26/2018 8:14 PM
--- NOTE | 2018-05-26 20:19 | Diagnostic Imaging Report ---
LOWER LEG RIGHT - 3 views HISTORY: Infection. COMPARISON: 04/13/2018. FINDINGS: Bones: No acute displaced fracture. Previously present hardware in the lower fibula has been removed. Joints: The joint spaces are well-maintained. Soft tissues: Soft tissue defects along the anterior aspect of the mid lower leg/diaz with possible mild soft tissue gas no opaque foreign body. IMPRESSION: No acute osseous abnormality. Correlate clinically for skin wound. Signed by: Dr. Kareem Woodward M.D. on 05/26/2018 8:16 PM
== END 2018-05-27 02:45 | disposition left against medical advice (07) ==
LOC: ER 15:45
DX: M79.662 Pain in left lower leg (principal); Z53.29 Procedure and treatment not carried out because of patient's decision for other reasons; F31.9 Bipolar disorder, unspecified
CPT/HCPCS: 36415; 80053; 83605; 85025; 87040; 99283

== ENCOUNTER 2018-06-05 13:02 | Emergency (ER) | payer SELFPAY ==
[~2018-06-05] VITALS: Ht 154.9 cm; Wt 53.5 kg
== END 2018-06-05 15:15 | disposition left against medical advice (07) ==
LOC: ER 13:15
DX: M79.671 Pain in right foot (principal); L03.115 Cellulitis of right lower limb